=== PATIENT | male | born 1965 | race Caucasian/White ===

== ENCOUNTER 2018-06-19 17:51 | Emergency (ER) | payer BC ==
[2018-06-19] MEDS ORDERED: predniSONE 20 MG Tab PO ONE (18:18)
--- NOTE | 2018-06-19 18:24 | EDM.PDOC ---
ED HPI GENERAL MEDICAL PROBLEM - General Chief Complaint: Lower Extremity Injury/Pain Stated Complaint: POSS INFECTION ON LEFT ANKLE Time Seen by Provider: 06/19/18 17:57 Source of Information: Reports: Patient, RN Notes Reviewed History Limitations: Reports: No Limitations - History of Present Illness INITIAL COMMENTS - FREE TEXT/NARRATIVE: Patient is a 53-year-old male who presents to the ED for the evaluation of swelling, pain and redness to his left ankle. He states that he has had a similar instance of this roughly 3 years ago. This time around however it started on , he noticed some swelling and pain to his left ankle. He did miss work yesterday and has been basically at bedrest since then. He's been taking Motrin and icing the ankle and trying to stay off of his foot. He says that the ankle itself is very painful to move or walk on it all. The area is a little warm to touch, more visibly swollen than his right ankle. He states that the pain kind of radiates up his left leg as well. He denies any fever/chills, or other feelings of being unwell at this time. The patient would put his pain at an 8 out of 10 today. He further notes that he only has one kidney, and only has half function of the one kidney. He does not have a history of diabetes. Treatments [employer]: Reports: Other (see below) Other Treatments [employer]: motrin Left Foot Pain Score (Numeric/FACES): 8 - Related Data Allergies Allergy/AdvReac Type Severity Reaction Status Date / Time No Known Allergies Allergy Verified 09/18/13 20:43 Home Meds: Home Meds Levothyroxine Sodium [Synthroid] 137 mcg PO DAILY 09/18/13 [History] Lisinopril 20 mg PO DAILY 09/18/13 [History] Aspirin [Ecotrin] 81 mg PO DAILY 06/19/18 [History] Clopidogrel [Plavix] 75 mg PO DAILY 06/19/18 [History] Famotidine [Pepcid] 20 mg PO DAILY 06/19/18 [History] Hydrochlorothiazide [Microzide] 12.5 mg PO DAILY 06/19/18 [History] Sertraline [Zoloft] 100 mg PO DAILY 06/19/18 [History] predniSONE [Prednisone] 40 mg PO DAILY #8 tablet 06/19/18 [Rx] Review of Systems - Review of Systems Review Of Systems: See Below Constitutional: Reports: No Symptoms Eyes: Reports: No Symptoms Ears: Reports: No Symptoms Nose: Reports: No Symptoms Mouth/Throat: Reports: No Symptoms Respiratory: Reports: No Symptoms Cardiovascular: Reports: No Symptoms GI/Abdominal: Reports: No Symptoms Genitourinary: Reports: No Symptoms Musculoskeletal: Reports: Joint Pain (left ankle), Joint Swelling (left ankle). Denies: Foot Pain Skin: Reports: Erythema. Denies: Mottled, Pallor, Urticaria Neurological: Reports: No Symptoms Psychiatric: Reports: No Symptoms ED EXAM, GENERAL - Physical Exam Exam: See Below Exam Limited By: No Limitations General Appearance: Alert, WD/WN, No Apparent Distress Eye Exam: Bilateral Eye: Normal Inspection Respiratory/Chest: No Respiratory Distress, Lungs Clear, Normal Breath Sounds, No Accessory Muscle Use, Chest Non-Tender Cardiovascular: Normal Peripheral Pulses, Regular Rate, Rhythm, No Murmur Peripheral Pulses: 3+: Dorsalis Pedis (L), Dorsalis Pedis (R) Extremities: Normal Inspection (of right foot/ankle), Normal Capillary Refill, Joint Swelling (left ankle), Limited Range of Motion (of left ankle d/t pain), Increased Warmth (of left ankle), Redness (erythema noted to left ankle) Neurological: Alert, Oriented, Normal Cognition, Normal Gait, No Motor/Sensory Deficits Psychiatric: Normal Affect, Normal Mood Skin Exam: Warm, Dry, Intact, No Rash, Erythema (of left ankle) Course - Vital Signs Last Recorded V/S: Last Vital Signs Temp 98.1 F 06/19/18 17:57 Pulse 89 06/19/18 17:57 Resp 20 06/19/18 17:57 BP 154/89 H 06/19/18 17:57 Pulse Ox 98 06/19/18 17:57 - Orders/Labs/Meds Orders: Active Orders 24 hr Category Date Time Status predniSONE Med 06/19/18 18:18 Once 40 mg PO ONETIME ONE - Re-Assessments/Exams Free Text/Narrative Re-Assessment/Exam: 06/19/18 18:24 Patient presents to the ED for the evaluation of a swollen left ankle. The area is warm to the touch and slightly reddened however it is not overly reddened which would suggest a cellulitis. It does appear to be gout-like in nature. I did have Dr. Do examine the patient with me and he does agree that it is more gout-like in nature. He suggests the use of prednisone for pain relief from this as the patient only has one kidney. I have ordered 40 mg by mouth prednisone and will give the patient a burst of prednisone for 5 days to see if this doesn't help his symptoms. He is to follow-up with Dr. Mills early this week for joint aspiration if Dr. Mills feels it is necessary. Patient and agree with this treatment plan. Departure - Departure Time of Disposition: 18:26 Disposition: Home, Self-Care 01 Condition: Fair Clinical Impression: Pseudogout of ankle Qualifiers: Laterality: left Qualified Code(s): M11.272 - Other chondrocalcinosis, left ankle and foot - Discharge Information *PRESCRIPTION DRUG MONITORING PROGRAM REVIEWED*: No *COPY OF PRESCRIPTION DRUG MONITORING REPORT IN PATIENT SHAW: No Instructions: Gout, [id number] Referrals: Ruel Carson PA [Primary Care Provider] - Additional Instructions: You have been evaluated in the ED tonight for your swollen left ankle. Your symptoms and presentation are consistent with gout or pseudogout in nature. You have been given an initial dose of 40 mg prednisone in the ED tonight, and have been provided with a prescription for 40 mg prednisone for the next 5 days. This has been electronically sent to the [facility], you will need to obtain list Wednesday so that you can take your second dose tomorrow evening. Please use heat to the affected joint, as this might provide further pain relief. Recommend that you follow up with Dr. Mills, our orthopedic surgeon to see if he would aspirate the joint to give you a definitive diagnosis of gout. His office number is [phone] please call early Wednesday to set up an appointment with him sometime this week. Otherwise she may follow up with your primary care provider if your symptoms subside with the prednisone. Please return to the ED if your symptoms change or worsen - My Orders Last 24 Hours: My Active Orders 06/19/18 18:18 predniSONE 40 mg PO ONETIME ONE - Assessment/Plan Last 24 Hours: My Active Orders 06/19/18 18:18 predniSONE 40 mg PO ONETIME ONE
== END 2018-06-19 18:47 | disposition home or self-care (01) ==
LOC: JD.ED 17:51
DX: M11.272 Other chondrocalcinosis, left ankle and foot (principal); Z79.899 Other long term (current) drug therapy
CPT/HCPCS: 99283; A9270

== ENCOUNTER 2019-07-11 16:10 | Emergency (ER) | payer BC, OTHER ==
[2019-07-11] MEDS ORDERED: Sodium Chloride 0.9% 10 ML Syringe FLUSH PRN (16:20)
--- NOTE | 2019-07-11 17:19 | EDM.PDOC ---
ED HPI GENERAL MEDICAL PROBLEM - General Chief Complaint: General Stated Complaint: Electrocuted Time Seen by Provider: 07/11/19 16:16 Source of Information: Reports: Patient History Limitations: Reports: No Limitations - History of Present Illness INITIAL COMMENTS - FREE TEXT/NARRATIVE: The patient presents because he was electrocuted. He was working on a humidifier that was 480 volts. It was not grounded right and he touched his elbow from the humidifier to the cabinet and he got a shock. It knocked him down. He has no pain now in his arms. He has no chest pain or shortness of breath. He has no abdominal pain, nausea or vomiting. He has some ecchymosis to the left elbow and abrasion to the right elbow. Onset: Sudden Duration: Minutes: Location: Reports: Upper Extremity, Left, Upper Extremity, Right Improves with: Reports: None Worsens with: Reports: None Associated Symptoms: Reports: No Other Symptoms - Related Data Allergies Allergy/AdvReac Type Severity Reaction Status Date / Time No Known Allergies Allergy Verified 07/11/19 16:20 Home Meds: Home Meds Levothyroxine Sodium [Synthroid] 137 mcg PO DAILY 09/18/13 [History] Lisinopril 40 mg PO DAILY 09/18/13 [History] Aspirin [Ecotrin EC] 81 mg PO DAILY 06/19/18 [History] Sertraline [Zoloft] 100 mg PO DAILY 06/19/18 [History] Allopurinol [Zyloprim] 200 mg PO DAILY 07/11/19 [History] Past Medical History HEENT History: Reports: Impaired Vision Cardiovascular History: Reports: High Cholesterol, Hypertension Respiratory History: Reports: Sleep Apnea Musculoskeletal History: Reports: Gout Neurological History: Reports: Other (See Below) Other Neuro History: 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 Psychiatric History: Reports: Depression Endocrine/Metabolic History: Reports: Hypothyroidism Oncologic (Cancer) History: Reports: Basal Cell Carcinoma - Past Surgical History HEENT Surgical History: Reports: Oral Surgery GI Surgical History: Reports: Other (See Below) Other GI Surgeries/Procedures: pyloric stenosis Social & Family History - Family History Family Medical History: Noncontributory - Tobacco Use Smoking Status *Q: Current Every Day Smoker Years of Tobacco use: 30 Packs/Tins Daily: 0.5 - Caffeine Use Caffeine Use: Reports: None ED ROS GENERAL - Review of Systems Review Of Systems: See Below Constitutional: Reports: No Symptoms HEENT: Reports: No Symptoms Respiratory: Reports: No Symptoms Cardiovascular: Reports: No Symptoms Endocrine: Reports: No Symptoms GI/Abdominal: Reports: No Symptoms : Reports: No Symptoms Musculoskeletal: Reports: No Symptoms ED EXAM, GENERAL - Physical Exam Exam: See Below Exam Limited By: No Limitations General Appearance: Alert, No Apparent Distress Ears: Normal External Exam Nose: Normal Inspection Head: Atraumatic, Normocephalic Neck: Normal Inspection Respiratory/Chest: No Respiratory Distress, Lungs Clear, Normal Breath Sounds Cardiovascular: Regular Rate, Rhythm, No Edema, No Murmur GI/Abdominal: Soft, Non-Tender, No Organomegaly, No Mass Back Exam: Normal Inspection Extremities: Normal Inspection EKG INTERPRETATION EKG Date: 07/11/19 Time: 16:19 Rhythm: NSR Rate (Beats/Min): 73 [place]: Normal P-Wave: Present QRS: Normal ST-T: Normal QT: Normal EKG Interpretation Comments: PAC Course - Vital Signs Last Recorded V/S: Last Vital Signs Temp 97.8 F 07/11/19 16:17 Pulse 71 07/11/19 16:17 Resp 16 07/11/19 16:17 BP 145/98 H 07/11/19 16:17 Pulse Ox 97 07/11/19 16:17 - Orders/Labs/Meds Orders: Active Orders 24 hr Category Date Time Status Cardiac Monitoring [RC] . DIRECTED Care 07/11/19 16:20 Active EKG Documentation Completion [RC] STAT Care 07/11/19 16:20 Active Peripheral IV Care [RC] . DIRECTED Care 07/11/19 16:20 Active Sodium Chloride 0.9% [Saline Flush] Med 07/11/19 16:20 Active 10 ml FLUSH ASDIRECTED PRN Peripheral IV Insertion Adult [OM.PC] Stat Oth 07/11/19 16:20 Ordered Medication Orders Sodium Chloride (Saline Flush) 10 ml FLUSH ASDIRECTED PRN PRN Reason: Keep Vein Open Last Admin: 07/11/19 16:41 Dose: 10 ml Labs: Laboratory Tests 07/11/19 07/11/19 Range/Units 16:37 16:37 WBC 8.77 (4.23-9.07) K/mm3 RBC 4.70 (4.63-6.08) M/mm3 Hgb 14.8 (13.7-17.5) gm/dl Hct 42.5 (40.1-51.0) % MCV 90.4 (79.0-92.2) fl MCH 31.5 (25.7-32.2) pg MCHC 34.8 (32.2-35.5) g/dl RDW Std Deviation 44.2 H (35.1-43.9) fL Plt Count 213 D (163-337) K/mm3 MPV 9.7 (9.4-12.3) fl Neut % (Auto) 65.5 (34.0-67.9) % Lymph % (Auto) 19.6 L (21.8-53.1) % [place] % (Auto) 10.1 (5.3-12.2) % Eos % (Auto) 3.8 (0.8-7.0) Baso % (Auto) 0.7 (0.1-1.2) % Neut # (Auto) 5.74 H (1.78-5.38) K/mm3 Lymph # (Auto) 1.72 (1.32-3.57) K/mm3 [place] # (Auto) 0.89 H (0.30-0.82) K/mm3 Eos # (Auto) 0.33 (0.04-0.54) K/mm3 Baso # (Auto) 0.06 (0.01-0.08) K/mm3 Sodium 142 (136-145) mEq/L Potassium 4.1 (3.5-5.1) mEq/L Chloride 105 (98-107) mEq/L Carbon Dioxide 23 (21-32) mEq/L Anion Gap 18.1 H (5-15) BUN 17 (7-18) mg/dL Creatinine 1.3 (0.7-1.3) mg/dL Est Cr Clr Drug Dosing 69.19 mL/min Estimated GFR (MDRD) 58 (>60) mL/min BUN/Creatinine Ratio 13.1 L (14-18) Glucose 122 H (74-106) mg/dL Calcium 9.2 (8.5-10.1) mg/dL Total Bilirubin 0.3 (0.2-1.0) mg/dL AST 59 H (15-37) U/L ALT 83 H (16-63) U/L Alkaline Phosphatase 104 (46-116) U/L Creatine Kinase 737 H (39-308) U/L Troponin I < 0.017 (0.00-0.056) ng/mL Total Protein 7.3 (6.4-8.2) g/dl Albumin 4.0 (3.4-5.0) g/dl Globulin 3.3 gm/dL Albumin/Globulin Ratio 1.2 (1-2) Meds: Medications Generic Name Dose Route Start Last Admin Trade Name Freq PRN Reason Stop Dose Admin Sodium Chloride 10 ml 07/11/19 16:20 07/11/19 16:41 Saline Flush FLUSH 10 ml ASDIRECTED PRN Administration Keep Vein Open - Re-Assessments/Exams Free Text/Narrative Re-Assessment/Exam: 07/11/19 17:20 I ordered an IV saline lock, EKG and labs. His EKG shows a NSR with no acute changes. 07/11/19 17:33 His CBC looks good. His anion gap was elevated at 18.1. His glucose was elevated at 122. His AST is elevated at 59. His ALT is elevated at 83. His CK was elevated at 737. His troponin is negative. He feels good. I will discharge him home. Departure - Departure Time of Disposition: 17:35 Disposition: Home, Self-Care 01 Condition: Good Clinical Impression: Electrocution - Discharge Information *PRESCRIPTION DRUG MONITORING PROGRAM REVIEWED*: Not Applicable *COPY OF PRESCRIPTION DRUG MONITORING REPORT IN PATIENT SHAW: Not Applicable Referrals: Amy Mckeon MD [Primary Care Provider] - Forms: ED Department Discharge Additional Instructions: Drink plenty of fluids. Take tylenol or motrin for any pain. Please return if you are worse. Sepsis Event Note - Evaluation Sepsis Screening Result: No Definite Risk - Focused Exam Vital Signs: Vital Signs Temp Pulse Resp BP Pulse Ox 07/11/19 16:17 97.8 F 71 16 145/98 H 97 Date Exam was Performed: 07/11/19 Time Exam was Performed: 17:33 - My Orders Last 24 Hours: My Active Orders 07/11/19 16:20 Cardiac Monitoring [RC] . DIRECTED EKG Documentation Completion [RC] STAT Peripheral IV Care [RC] . DIRECTED Sodium Chloride 0.9% [Saline Flush] 10 ml FLUSH ASDIRECTED PRN Peripheral IV Insertion Adult [OM.PC] Stat - Assessment/Plan Last 24 Hours: My Active Orders 07/11/19 16:20 Cardiac Monitoring [RC] . DIRECTED EKG Documentation Completion [RC] STAT Peripheral IV Care [RC] . DIRECTED Sodium Chloride 0.9% [Saline Flush] 10 ml FLUSH ASDIRECTED PRN Peripheral IV Insertion Adult [OM.PC] Stat
== END 2019-07-11 17:53 | disposition home or self-care (01) ==
LOC: JD.ED 16:10
DX: T75.4XXA Electrocution, initial encounter (principal); I10 Essential (primary) hypertension; F32.9 Major depressive disorder, single episode, unspecified; E03.9 Hypothyroidism, unspecified; M10.9 Gout, unspecified; F17.210 Nicotine dependence, cigarettes, uncomplicated; Z79.82 Long term (current) use of aspirin; Z79.899 Other long term (current) drug therapy
CPT/HCPCS: 36415; 80053; 82550; 84484; 85025; 93005; 93010; 99283-25; 99284

== ENCOUNTER → 2020-11-26 | Day surgery (SDC) | payer BC ==
[~2020-11-26] MED LIST: Lactated Ringers 1,000 ML IV SCH; Lactated Ringers 1,000 ML ONE; Lidocaine 1% 4 ML ONE; Lidocaine 1%/Sod Bicarbonate in NS 8.4% 1 ML Syringe IDERM PRN; Propofol 200 MG/20 ML SDV ONE; Sodium Chloride 0.9% 10 ML Syringe FLUSH PRN; fentaNYL 100 MCG/2 ML SDV ONE
--- NOTE | 2020-11-26 07:30 | PCM.PREANE ---
Preanesthetic Assessment - Procedure Proposed Procedure: screening colonosco[y - Anesthesia/Transfusion/Family Hx Anesthesia History: Prior Anesthesia Without Reaction Family History of Anesthesia Reaction: No Transfusion History: No Prior Transfusion(s) - Review of Systems General: No Symptoms Pulmonary: No Symptoms Cardiovascular: No Symptoms Gastrointestinal: No Symptoms Neurological: No Symptoms Other: Reports: Diabetes, Thyroid Problems, Depression, Anxiety - Physical Assessment NPO Status Date: 11/25/20 NPO Status Time: 20:00 Vital Signs: 125/82 64 96% 16 98.1 Height: 5 ft 10 in Weight: 113.4 kg ASA Class: 2 Mental Status: Alert & Oriented x3 Airway Class: Mallampati = 1 Dentition: Reports: Normal Dentition Thyro-Mental Finger Breadths: 3 Mouth Opening Finger Breadths: 3 ROM/Head Extension: Full Lungs: Clear to Auscultation, Normal Respiratory Effort Cardiovascular: Regular Rate, Irregular Rhythm - Allergies Allergies/Adverse Reactions: Allergies Allergy/AdvReac Type Severity Reaction Status Date / Time No Known Allergies Allergy Verified 11/25/20 18:29 - Blood Blood Available: No - Acknowledgements Anesthesia Type Planned: MAC Pt an Appropriate Candidate for the Planned Anesthesia: Yes Alternatives and Risks of Anesthesia Discussed w Pt/Guardian: Yes Pt/Guardian Understands and Agrees with Anesthesia Plan: Yes PreAnesthesia Questionnaire HEENT History: Reports: Impaired Vision, Other (See Below) Other HEENT History: ear itching, tinnitis, hearing loss Cardiovascular History: Reports: High Cholesterol, Hypertension Respiratory History: Reports: Sleep Apnea (cpap) Gastrointestinal History: Reports: Other (See Below) Other Gastrointestinal History: elevated LFTS, fatty liver infiltrate Genitourinary History: Reports: Other (See Below) Other Genitourinary History: CKD, nephrectomy, prostatism FURNACE HAND History: Reports: None Musculoskeletal History: Reports: Gout, Other (See Below) Other Musculoskeletal History: right leg injury Neurological History: Reports: Other (See Below) Other Neuro History: 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, memory changes Psychiatric History: Reports: Depression, Other (See Below) Other Psychiatric History: fatigue Endocrine/Metabolic History: Reports: Diabetes, Type II, Hypothyroidism, Obesity/BMI 30+, Vitamin D Deficiency Hematologic History: Reports: None Immunologic History: Reports: None Oncologic (Cancer) History: Reports: Basal Cell Carcinoma Dermatologic History: Reports: Other (See Below) Other Dermatologic History: left leg hematoma, orbital cellulitis - Infectious Disease History Infectious Disease History: Reports: None - Past Surgical History HEENT Surgical History: Reports: Oral Surgery Cardiovascular Surgical History: Reports: None Respiratory Surgical History: Reports: None GI Surgical History: Reports: Other (See Below) Other GI Surgeries/Procedures: pyloric stenosis with surigcal repair Male Surgical History: Reports: Nephrectomy, Vasectomy Endocrine Surgical History: Reports: None Neurological Surgical History: Reports: Other (See Below) Other Neurological Surgeries/Procedures: anurysm repair Oncologic Surgical History: Reports: None Dermatological Surgical History: Reports: None - SUBSTANCE USE Tobacco Use Status *Q: Former Tobacco User Tobacco Use Within Last Twelve Months: No Second Hand Smoke Exposure: No Days Per Week of Alcohol Use: 0 Recreational Drug Use History: No - HOME MEDS Home Medications: Home Meds Lisinopril 40 mg PO DAILY 09/18/13 [History] Aspirin [Ecotrin EC] 81 mg PO DAILY 06/19/18 [History] Sertraline [Zoloft] 100 mg PO DAILY 06/19/18 [History] allopurinoL [Zyloprim] 200 mg PO DAILY 07/11/19 [History] Glimepiride 1 mg PO DAILY 01/18/20 [History] amLODIPine Besylate [Norvasc] 2.5 mg PO DAILY 01/18/20 [History] Levothyroxine 25 mcg PO Q48H 11/25/20 [History] Levothyroxine 150 mcg PO DAILY 11/25/20 [History] - CURRENT (IN HOUSE) MEDS Current Meds: Current Medications Lactated Ringer's (Ringers, Lactated) 1,000 mls @ 125 mls/hr IV ASDIRECTED CHERY Lidocaine/Sodium Bicarbonate (Lidocaine 1%/Sod Bicarbonate In Ns 8.4% 1 Ml Syringe) 0.25 ml IDERM ONETIME PRN PRN Reason: Prior to IV Start Sodium Chloride (Sodium Chloride 0.9% 10 Ml Syringe) 10 ml FLUSH ASDIRECTED PRN PRN Reason: Keep Vein Open
--- NOTE | 2020-11-26 09:17 | PCM.PRNOTE ---
- Free Text/Narrative Note: Date: 11/26/2020 Procedure: initial screening colonoscopy Endoscopist: Contreras Schmitt MD Findings: Prep was good. Two subcentimeter polyps in proximal half of colon. One larger, 1.5 cm pedunculated polyp within sigmoid colon. Extensive sigmoid diverticulosis. Detailed Report: The patient was taken to the endoscopy suite and placed in left lateral decubitus position. Timeout was performed and monitored anesthesia care was initiated. Visual inspection of the anus revealed no abnormality. Digital rectal exam was unremarkable. The colonoscope was inserted and advanced all the way to the cecum. It was very difficult to intubate the cecum, and abdominal maneuvers and repositioning the patient in supine position were required in order to successfully visualize the ileocecal valve and appendiceal orifice. Prep was good. The scope was slowly withdrawn and mucosal surfaces carefully inspected. 2 benign-appearing subcentimeter sessile polyps were identified, one in the ascending colon and one at about the level of the hepatic flexure. These were both removed entirely with cold jumbo forceps. There was extensive diverticulosis of the sigmoid colon. On withdrawal of the scope, a larger polyp which was not seen on entry was identified within the mid sigmoid approximately 50 cm from the anal verge. This was at a very difficult spot to access, and with the patient snoring and the challenge of maintaining insufflation of the colon it took quite some time to successfully remove this polyp using hot snare polypectomy technique. The bulk of the polyp was removed and retrieved successfully. There was some remnant stalk tissue which was excised using the hot snare as well; however, this portion of tissue was not able to be retrieved due to difficulty of access. No other polyps were identified. The scope was withdrawn into the rectum and retroflexed. No pathology was notified. Air was suctioned from the distal colon and rectum prior to withdrawal of the scope. The patient tolerated the procedure well.
--- NOTE | 2020-11-26 09:21 | PCM48HPAN ---
Post Anesthesia Note - EVALUATION WITHIN 48HRS OF ANESTHETIC Vital Signs in Normal Range: Yes Patient Participated in Evaluation: Yes Respiratory Function Stable: Yes Airway Patent: Yes Cardiovascular Function Stable: Yes Hydration Status Stable: Yes Pain Control Satisfactory: Yes Nausea and Vomiting Control Satisfactory: Yes Mental Status Recovered: Yes Vital Signs: Last Vital Signs Temp 36.5 C 11/26/20 09:15 Pulse 67 11/26/20 09:15 Resp 14 11/26/20 09:15 BP 108/77 11/26/20 09:15 Pulse Ox 92 L 11/26/20 09:15
== END | disposition home or self-care (01) ==
LOC: JD.SDS 07:09
PROVIDERS: ATTEND Surgery
DX: Z12.11 Encounter for screening for malignant neoplasm of colon (principal); D12.2 Benign neoplasm of ascending colon; D12.3 Benign neoplasm of transverse colon; D12.5 Benign neoplasm of sigmoid colon; K57.30 Diverticulosis of large intestine without perforation or abscess without bleeding; I12.9 Hypertensive chronic kidney disease with stage 1 through stage 4 chronic kidney disease, or unspecified chronic kidney disease; N18.9 Chronic kidney disease, unspecified; M10.9 Gout, unspecified; E78.00 Pure hypercholesterolemia, unspecified; E03.9 Hypothyroidism, unspecified; G47.33 Obstructive sleep apnea (adult) (pediatric); E55.9 Vitamin D deficiency, unspecified; E11.22 Type 2 diabetes mellitus with diabetic chronic kidney disease; Z90.5 Acquired absence of kidney; Z79.899 Other long term (current) drug therapy; Z79.82 Long term (current) use of aspirin; Z79.890 Hormone replacement therapy; Z87.891 Personal history of nicotine dependence
CPT/HCPCS: 45380; 45385; 82947; J2704; J3010; J7120; 00812